=== PATIENT | female | born 1960 | race African-American/Black ===

== ENCOUNTER 2018-09-04 17:23 | Emergency (ER) | payer OTHER, SELFPAY ==
[2018-09-04] MEDS ORDERED: Ketorolac Tromethamine 30 MG/ML VIAL ONE (17:59)
--- NOTE | 2018-09-04 18:34 | RAD ---
ONE VIEW PELVIS: 09/04/18 HISTORY: Pain. Fall. FINDINGS: Sacral ala are preserved. Sacroiliac joints are patent and symmetric. Intact bony pelvis. Symmetric h ip joint spaces. Contour of both femoral heads are maintained. IMPRESSION: No bony pelvic fracture. POS: [facility]
--- NOTE | 2018-09-04 18:35 | RAD ---
LEFT KNEE FOUR VIEWS: 09/04/18 HISTORY: Fall. Pain. FINDINGS: No significant joint effusion. Joint spaces are preserved. No fracture or malalignment. IMPRESSION: No posttraumatic change. POS: [facility]
--- NOTE | 2018-09-04 18:37 | RAD ---
LUMBAR SPINE THREE VIEWS: 09/04/18 HISTORY: Fall. Pain. FINDINGS: Five lumbar type vertebral bodies. Lumbar spine vertebral body height is maintained. No fracture. Dis c space heights are preserved. No spondylolisthesis or spondylolysis. There are degenerative changes in the posterior elements at L5-S1. IMPRESSION: No fracture. POS: [facility]
== END 2018-09-04 18:54 | disposition home or self-care (01) ==
LOC: ERS 17:23
DX: S06.0X0A Concussion without loss of consciousness, initial encounter (principal); S80.02XA Contusion of left knee, initial encounter; Z79.899 Other long term (current) drug therapy; Z79.82 Long term (current) use of aspirin; W01.0XXA Fall on same level from slipping, tripping and stumbling without subsequent striking against object, initial encounter
CPT/HCPCS: 72100; 72170; 96372; J1885

== ENCOUNTER 2023-02-08 11:41 | Outpatient (CLI) | payer SELFPAY | END 2023-02-08 11:42 | disposition home or self-care (01) | LOC: RAD 11:41 | PROVIDERS: ATTEND Nurse Practitioner Family | DX: M25.562 Pain in left knee (principal); M17.12 Unilateral primary osteoarthritis, left knee ==